=== PATIENT | female | born 1990 | race Two or more races ===

== ENCOUNTER 2025-04-07 00:41 | Emergency (ER) | payer OTHER ==
[~2025-04-07] VITALS: Ht 149.9 cm; Wt 59.8 kg
[2025-04-07 01:50] LABS: BASOPHILS # (AUTO) 0.1 X10'3 (0-0.2); EOSINOPHILS # (AUTO) 0.1 X10'3 (0-0.9); EOSINOPHILS % (AUTO) 1.8 % (0-6); HEMATOCRIT 33.9 % (35.0-45.0); HEMOGLOBIN 11.4 g/dl (12.0-16.0); LYMPHOCYTES # (AUTO) 2.7 X10'3 (1.1-4.8); LYMPHOCYTES % (AUTO) 33.6 % (21-51); MEAN CORPUSCULAR HEMOGLOBIN 25.5 PG (27.0-31.0); MEAN CORPUSCULAR HGB CONC 33.8 g/dL (33.0-36.5); MEAN CORPUSCULAR VOLUME 75.6 FL (78-98); MEAN PLATELET VOLUME 8.2 FL (7.4-10.4); MONOCYTES # (AUTO) 0.5 X10'3 (0-0.9); MONOCYTES % (AUTO) 6.2 % (2-12); NEUTROPHILS # (AUTO) 4.6 X10'3 (1.8-7.7); NEUTROPHILS % (AUTO) 57.4 % (42-75); PLATELET COUNT 225 X10'3 (140-440); RED BLOOD COUNT 4.48 X10'6 (4.20-5.60); RED CELL DISTRIBUTION WIDTH 13.7 % (11.5-14.5)
[2025-04-07 01:54] LABS: URINE HCG NEGATIVE (NEG)
[2025-04-07 01:59] LABS: ALANINE AMINOTRANSFERASE 15 U/L (12-78); ALBUMIN 3.8 G/DL (3.4-5.0); ALBUMIN/GLOBULIN RATIO 1.2 (1.1-1.5); ALKALINE PHOSPHATASE 66 IU/L (46-116); ANION GAP 8 (8-16); ASPARTATE AMINO TRANSFERASE 13 U/L (10-37); BILIRUBIN,TOTAL 0.8 MG/DL (0.1-1.0); BLOOD UREA NITROGEN 9 MG/DL (7-18); CALCIUM 8.4 MG/DL (8.5-10.1); CHLORIDE 104 MMOL/L (99-107); GLUCOSE 107 MG/DL (70-104); LIPASE 46 U/L (16-77); POTASSIUM 3.6 MMOL/L (3.5-5.1); SODIUM 139 MMOL/L (135-145); TOTAL PROTEIN 7.1 G/DL (6.4-8.2); eCRCL 91 ML/MIN; eGFR > 90 ML/MIN
[2025-04-07 02:05] LABS: BILIRUBIN,URINE NEGATIVE (Neg); CLARITY,URINE CLEAR (Clear); COLOR,URINE YELLOW (Yellow); GLUCOSE, URINE NEGATIVE (Neg); KETONES,URINE NEGATIVE (Neg); LEUKOCYTE ESTERASE ,URINE NEGATIVE (Neg); NITRITES, URINE NEGATIVE (Neg); OCCULT BLOOD,URINE TRACE-INTACT (Neg); PROTEIN,URINE NEGATIVE (Neg); UROBILINOGEN,URINE 0.2 E.U/dL (0.2-1.0)
[2025-04-07 02:10] LABS: UA COLLECTION TYPE NON-SPECIFIED
[2025-04-07 02:13] LABS: BACTERIA,URINE FEW /HPF (Neg); RBC,URINE 0-2 /HPF (0-2); SQUAMOUS EPITHELIAL CELL,UR FEW /LPF (FEW); WBC,URINE NONE SEEN /HPF (0-4)
[2025-04-07] MEDS: normal saline 1000ml 1,000 ML IV ONE (02:47)
[2025-04-07] MEDS: ketorolac trometh 15mg/ml vial 15 MG/ML ML IV ONE (02:47)
--- NOTE | 2025-04-07 03:06 | Physician Documentation ---
History of Present Illness Chief Complaint: Abdominal Pain Stated Complaint: ABDOMINAL PAIN Time Seen by MD: 01:15 Mode of Arrival: POV HPI 34-year-old female, history of ovarian dermoid cysts, who presents with lower abdominal pain. She tells me that her pain started earlier today, and has been constant since then. She states it is located in her central lower pelvic region. She states it is intermittent and crampy, feels like contractions. She states it feels similar when she had an ectopic 1 time in the past. She reports associated nausea. She denies any fevers, chills, vomiting, diarrhea, dysuria, hematuria. No vaginal bleeding or discharge. Last menstrual cycle was within the last month and was normal. She did not take any pain medication for this. She does have dermoid cysts in both of her ovaries, and gets regular ultrasounds. She shows me an ultrasound she had in December. Last Menstrual Period: March 20, 2025 Medication Reconciliation Allergies: Coded Allergies: No Known Allergies (Unverified , 04/07/25) Past Medical History Last Menstrual Period: March 20, 2025 Review of Systems Gastrointestinal: Reports: abdominal pain, nausea; Denies: abdomen distended, vomiting, diarrhea Genitourinary: Denies: discharge Physical Exam Vital Signs: Temperature: 98.6, Source: Oral, Heart Rate: 79, Respiratory Rate: 18, BP: 98/52, Pulse Oximetry: 100, Weight: 59.750 Oxygen Flow Rate: 0 Physical Exam General: This is a very pleasant and overall well-appearing young female, family at bedside including young children HEENT: Atraumatic, oropharynx is moist Heart: Regular rate and rhythm, normal-appearing peripheral perfusion Lungs: normal work of breathing, normal oxygen saturation on room air Abdomen: Soft, nondistended. The patient has no significant reproducible tenderness on deep palpation in all quadrants including in the right lower quadrant. She does report some mild generalized discomfort when I palpate in the lowest pelvic region. No rebound or guarding. Extremities: Warm and well-perfused Neuro: Alert and oriented, no focal deficits Psychiatric: Calm and cooperative with exam Progress Results/Orders Results/Orders Orders - HARSHAD PRESTON MD Normal Saline 1000ml (Sodium Chloride 10 (04/07/25 02:35) Ct Abdomen Pelvis (04/07/25 02:34) Ultrasound Pelvis W/Orwo Dplx (04/07/25 ) Completed Orders - HARSHAD PRESTON MD Hcg, Ur Ql (04/07/25 01:01) Cbc/Diff (04/07/25 01:01) BMP (04/07/25 01:01) Lipase (04/07/25 01:01) CMP (04/07/25 01:01) Ua W/Microscopic, Cult If Ind (04/07/25 01:43) Ketorolac Trometh 15mg/Ml Vial (Toradol (04/07/25 02:35) Medications Received in ER Medications (Trade) Dose Ordered Sig/Jefe Route PRN Reason Start Time Stop Time Status Last Admin Dose Admin (Toradol injection) 15 mg ONCE ONCE IV 04/07/25 02:35 04/07/25 02:36 DC 04/07/25 02:47 15 MG Sodium Chloride 1,000 ml @ 1,000 mls/hr ONCE ONCE IV 04/07/25 02:35 04/07/25 03:34 04/07/25 02:47 1,000 MLS/HR Vital Signs 04/07/25 04/07/25 04/07/25 04/07/25 00:52 01:16 01:19 02:30 Temp 98.6 98.6 98.6 Pulse 79 Resp 14 19 18 18 B/P (MAP) 90/59 188/163 (171) 98/52 (67) Pulse Ox 97 98 100 O2 Flow Rate 0 0 0 Laboratory Tests Test 04/07/25 01:25 04/07/25 01:43 White Blood Count 8.0 Red Blood Count 4.48 Hemoglobin 11.4 L Hematocrit 33.9 L Mean Corpuscular Volume 75.6 L Mean Corpuscular Hemoglobin 25.5 L Mean Corpuscular Hemoglobin Concent 33.8 Red Cell Distribution Width 13.7 Platelet Count 225 Mean Platelet Volume 8.2 Neutrophils (%) (Auto) 57.4 Lymphocytes (%) (Auto) 33.6 Monocytes (%) (Auto) 6.2 Eosinophils (%) (Auto) 1.8 Basophils (%) (Auto) 1.0 Neutrophils # (Auto) 4.6 Lymphocytes # (Auto) 2.7 Monocytes # (Auto) 0.5 Eosinophils # (Auto) 0.1 Basophils # (Auto) 0.1 CBC Comment Sodium Level 139 Potassium Level 3.6 Chloride Level 104 Carbon Dioxide Level 27.0 Anion Gap 8 Blood Urea Nitrogen 9 Creatinine 0.60 Estimated GFR/1.73 m2 > 90 BUN/Creatinine Ratio 15.0 Glucose Level 107 H Calcium Level 8.4 L Total Bilirubin 0.8 Aspartate Amino Transf (AST/SGOT) 13 Alanine Aminotransferase (ALT/SGPT) 15 Alkaline Phosphatase 66 Total Protein 7.1 Albumin 3.8 Globulin 3.3 Albumin/Globulin Ratio 1.2 Lipase 46 Chemistry Comments Urine Specimen Description Non-specified Urine Color Yellow Urine Clarity Clear Urine pH 7.0 Urine Specific [place] 1.010 Urine Protein Negative Urine Glucose (UA) Negative Urine Ketones Negative Urine Occult Blood Trace-intact Urine Nitrite Negative Urine Bilirubin Negative Urine Urobilinogen 0.2 Urine Leukocyte Esterase Negative Urine RBC 0-2 Urine WBC None seen Urine Squamous Epithelial Cells Few Urine Bacteria Few Urine Culture Indicated Not ind Volume Urine Centrifuged 10 ml Urine HCG, Qualitative Negative Urine Comment Medical Decision Making Additional Comments Differential includes , ectopic , ovarian cyst, ovarian torsion, appendicitis, kidney stone, UTI, intestinal cramping, menstrual cramping Assessment 34-year-old female presenting with pelvic pain. On exam, she does not have significant abdominal tenderness or peritoneal findings, however she does appear uncomfortable. Her laboratory testing is unremarkable, she is not making ectopic unlikely. She does not have evidence of urinary tract infection. On review of her reported medical history she does have ovarian cysts. Ovarian torsion or cyst remains high in the differential. After shared decision-making conversation we decided to proceed with a abdominal imaging. She was given Toradol and IV fluids. Ultrasound without evidence of torsion. CT abdomen without dangerous findings. On re-evaluation she was feeling better. Overall, no dangerous cause identified for her symptoms. I suspect that this is intestinal cramping, related to either dehydration, constipation, or different foods during travel. She will be discharged home with symptomatic ping atment. Departure Time of Disposition: 05:55 Disposition: 01 HOME / SELF CARE / HOMELESS Impression: Primary Impression: Abdominal cramping Condition: Improved Discharge Instructions: Abdominal Pain (Nonspecific) Referrals: NO PRIMARY CARE PROVIDER (PCP) Education Educated: Patient, Family Educated regarding: diagnosis, treatment Signature Scribe Signature: lanie Attestation: HARSHAD Patel MD April 07, 2025 03:06
[2025-04-07] MEDS ORDERED: iohexol 300mg/ml 100ml inj. ONE (03:08)
--- NOTE | 2025-04-07 04:22 | RADIOLOGY REPORT ---
Clinical History Pelvic pain, history of ovarian cyst, rule out torsion Comparison ct abd/pel on 04/07/2025, 323 images. Without Contrast MONALISA BARDALES, [id number] Ultrasound pelvis Clinical history: 34-year-old pelvic pain Findings: Uterus: 9.36 x 4.65 x 5.16 cm Endometrium: 8.0 mm Right ovary: 3.89 x 2.40 x 3.30 cm Arterial and venous flow seen Nonvascular hyperechoic area 3.28 x 2.62 x 1.44 cm Left ovary: 2.88 x 2.45 x 1.72 cm Arterial and venous flow seen Nonvascular hyperechoic area 1.81 x 1.10 x 0.95 cm No free fluid Impression:No evidence of Torsion. This report was electronically signed by Bipin Oconnor MD on 04/07/2025 4:18:57 AM.
--- NOTE | 2025-04-07 05:42 | RADIOLOGY REPORT ---
Clinical History Lower abdominal pain, lightheadedness, eval appendicitis versus pelvic blee Comparison us pelvis on 04/07/2025, 86 images. Technique: All CT scans at this medical facility are performed using dose modulation techniques as appropriate t o a performed exam including the following: Automated exposure control was utilized; adjustment of th e mA and/or kV according to patient size; and use of iterative reconstruction technique. All CT studies are reported to the Dose Index Registry of the [employer]. Contrast: OMNIPAQUE 300, 100ML Radiation Dose: CTDI (mGy): 10.62; DLP (mGy-cm): 497.7 MONALISA BARDALES, [id number] CT abdomen and pelvis Clinical history: 34-year-old abdominal pain Findings: Contrast: Lower lung garcia:clear Liver:normal Gallbladder:normal Pancreas:normal Spleen:normal Adrenals:normal Kidneys:normal GI tract:Constipation Musculoskeletal:normal Urinary bladder: normal Pelvis:normal Appendix:Normal Impression: Constipation. This report was electronically signed by Bipin Oconnor MD on 04/07/2025 5:38:53 AM.
[2025-04-07 05:56] VITALS: BP 90/67; PULSE 61; RESP 19; TEMP 98.6; O2SAT 100
== END 2025-04-07 06:02 | disposition home or self-care (01) ==
LOC: ER 00:43
DX: R10.2 Pelvic and perineal pain (principal)
CPT/HCPCS: 36415; 74177; 76856; 80053; 81001; 81025; 83690; 85025; 93976; 96361; 96374; 99285; J1885; J7030; Q9967